=== PATIENT | female | born 1965 | race Two or more races ===

== ENCOUNTER 2020-04-01 08:14 | Emergency (ER) | payer OTHER, SELFPAY ==
[~2020-04-01] VITALS: Ht 170.2 cm; Wt 93.3 kg
[2020-04-01] MEDS ORDERED: DEXAMETHASONE 4 MG/ML, 1ML ONE (08:47)
[2020-04-01] MEDS ORDERED: DEXAMETHASONE 4 MG/ML, 1ML PO ONE (09:00)
[2020-04-01 09:05] LABS: BASOPHILS % (AUTO) 0 % (0-1); EOSINOPHILS % (AUTO) 0 % (1-7); LYMPHOCYTES % (AUTO) 15 % (22-44); MEAN CORPUSCULAR HEMOGLOBIN 29.3 pg (27.0-34.8); MEAN CORPUSCULAR HGB CONC 34.1 g/dL (32.4-35.8); MONOCYTES % (AUTO) 8 % (2-9); NEUTROPHILS % (AUTO) 76 % (42-75); PLATELET COUNT 172 x10^3/uL (130-400); RED BLOOD COUNT 5.03 x10^6/uL (3.82-5.3); RED CELL DISTRIBUTION WIDTH 14.3 % (9.6-15.2)
[2020-04-01 09:09] LABS: MD NO
[2020-04-01] MEDS ORDERED: DOXYCYCLINE 100MG TABLET PO ONE (09:30)
--- NOTE | 2020-04-01 09:30 | NUR ---
#[id number] assumed care of pt. pt here c/o GOMEZ and intermittent SOB. pt reports that she is COVID+ and that she has been having fevers as high as 103 at home. pt is currently afebrile and in no resp. distress on RA. pt calm and cooperative and Dr Craig has been to bedside for evaluation pt updated on POC. no family at bedside resting in position of comfort
[2020-04-01 09:31] LABS: ALANINE AMINOTRANSFERASE 23 U/L (12-78); BILIRUBIN,TOTAL 0.3 mg/dL (0.2-1.0); CALCIUM 8.6 mg/dL (8.5-10.1); CHLORIDE 105 mmol/L (98-107); CREATININE 0.73 mg/dL (0.55-1.02)
[2020-04-01 09:32] LABS: ALBUMIN 3.4 g/dL (3.4-5.0); ALKALINE PHOSPHATASE 148 U/L (45-117); ANION GAP 7 mmol/L (5-15); TOTAL PROTEIN 7.7 g/dL (6.4-8.2); TROPONIN I < 0.015 ng/mL (0.000-0.045)
[2020-04-01] MEDS ORDERED: DOXYCYCLINE 100MG TABLET ONE (10:39)
--- NOTE | 2020-04-01 11:30 | NUR ---
per report, Jose GUILLEN attempted to D/C pt but pt was 88% on RA. Jose notified Dr. Craig of pt SaO2 and per report pt is still OK to D/C
--- NOTE | 2020-04-01 12:00 | NUR ---
pt SaO2 is intermittently between 88 to 91%. pt is in no resp. distress. no cough, afebrile. pt denies CP and states that she stil wants to be D/C. Dr. Craig has been notified by this RN and per MD, pt is still OK for D/C to home
--- NOTE | 2020-04-01 12:18 | NUR ---
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
[2020-04-01 12:27] VITALS: BP 119/69
[2020-04-01] MEDS ORDERED: SERT100T32 PO (22:46)
[2020-04-01] MEDS ORDERED: BUPR100T8 PO (22:46)
[2020-04-01] MEDS ORDERED: BUSP15TA PO (22:46)
== END 2020-04-01 12:32 | disposition home or self-care (01) ==
LOC: ED 09:32
DX: J15.9 Unspecified bacterial pneumonia (principal); R94.31 Abnormal electrocardiogram [ECG] [EKG]
CPT/HCPCS: 36415; 71045; 80053; 84484; 85025; 93005; 99285; J1100

== ENCOUNTER 2020-04-01 21:22 | Emergency (ER) | payer SELFPAY ==
[~2020-04-01] VITALS: Ht 167.6 cm; Wt 92.0 kg
[2020-04-01] MEDS ORDERED: SERT100T32 PO (22:46)
[2020-04-01] MEDS ORDERED: BUPR100T8 PO (22:46)
[2020-04-01] MEDS ORDERED: BUSP15TA PO (22:46)
--- NOTE | 2020-04-01 22:47 | NUR ---
PT CAME INTO ED TODAY DUE TO COVID, PT REPORTS CP AND INCREASING SOB. PT GROSS NEURO INTACT, RESTING ON GURNEY, PULSES 2+, PLACED ON SPO2/BP/ECG MONITORING AT THIS TIME, PROVIDED WARM BLANKETS, NAD, CALL LIGHT ON LAP, SIDE RAILS UP, BED IN LOWEST, WCTM. WAITING FOR RCK. DENIES ADDITIONAL QUESTIONS OR NEEDS AT THIS TIME.
[2020-04-01 23:29] VITALS: BP 120/63
--- NOTE | 2020-04-01 23:32 | NUR ---
Patient/Caregiver given discharge instructions and they have confirmed that they understand the instructions. Patient ambulatory with steady gait. NAD, DENIES ADDITIONAL QUESTIONS OR NEEDS. NO PERSONAL BELONGINGS LEFT IN ROOM AT TIME OF DC.
== END 2020-04-02 00:15 | disposition home or self-care (01) ==
LOC: ED 22:07
DX: B34.9 Viral infection, unspecified (principal); R05 Cough; R06.02 Shortness of breath; R50.9 Fever, unspecified; I49.1 Atrial premature depolarization; M79.10 Myalgia, unspecified site
CPT/HCPCS: 71045; 93005; 99283

== ENCOUNTER 2020-12-10 19:14 | Emergency (ER) | payer SELFPAY ==
[~2020-12-10] VITALS: Ht 167.6 cm; Wt 91.4 kg
[~2020-12-10 19:14] MED LIST: BUPR100T8 PO; BUSP15TA PO; SERT100T32 PO
--- NOTE | 2020-12-10 19:32 | NUR ---
pt c/o of sore throat, occasional cough, and spitting up sputum for past week. pt states she believes it started from the smoke in the air. pt daughter speaking for pt. pt chinese wristband on. bed in low positon, rails engaged. call light on lap. breathing even and unlabored. nadn. velázquez
--- NOTE | 2020-12-10 19:34 | NUR ---
pt states cp is from coughing since last week
[2020-12-10] MEDS ORDERED: KETOROLAC 30 MG/1 ML IM ONE (20:00)
[2020-12-10] MEDS ORDERED: KETOROLAC 30 MG/1 ML ONE (20:00)
--- NOTE | 2020-12-10 20:12 | NUR ---
PT ON RESP ISO. STARTED WHEN PT ARRIVED.
[2020-12-10 20:18] LABS: BASOPHILS % (AUTO) 0 % (0-1); EOSINOPHILS % (AUTO) 3 % (1-7); LYMPHOCYTES % (AUTO) 41 % (22-44); MEAN CORPUSCULAR HEMOGLOBIN 29.5 pg (27.0-34.8); MEAN CORPUSCULAR HGB CONC 34.1 g/dL (32.4-35.8); MEAN PLATELET VOLUME 8.4 fL (7.4-10.4); MONOCYTES % (AUTO) 6 % (2-9); NEUTROPHILS % (AUTO) 50 % (42-75); PLATELET COUNT 206 x10^3/uL (130-400); RED BLOOD COUNT 4.71 x10^6/uL (3.82-5.3); RED CELL DISTRIBUTION WIDTH 14.4 % (9.6-15.2)
--- NOTE | 2020-12-10 20:19 | NUR ---
Patient is resting comfortably in bed. Bed in lowest, rails engaged, call light on lap. Vital Signs within normal limits. WCTM.
[2020-12-10 20:28] LABS: ALANINE AMINOTRANSFERASE 32 U/L (12-78); ALBUMIN 3.5 g/dL (3.4-5.0); ANION GAP 4 mmol/L (5-15); CALCIUM 8.4 mg/dL (8.5-10.1); CHLORIDE 109 mmol/L (98-107); CREATININE 0.79 mg/dL (0.55-1.02)
[2020-12-10 20:31] LABS: ALKALINE PHOSPHATASE 144 U/L (45-117); BILIRUBIN,TOTAL 0.3 mg/dL (0.2-1.0); TOTAL PROTEIN 7.5 g/dL (6.4-8.2)
[2020-12-10 21:05] VITALS: BP 123/72
--- NOTE | 2020-12-10 21:05 | NUR ---
Patient is resting comfortably in bed. Bed in lowest, rails engaged, call light on lap. Vital Signs within normal limits. WCTM.
--- NOTE | 2020-12-10 22:09 | NUR ---
Patient/Caregiver given discharge instructions and they have confirmed that they understand the instructions. Patient ambulatory with steady gait. NAD, all questions answered appropriately, denies additional needs at this time. No personal belongings left in room after discharge.
== END 2020-12-10 22:11 ==
LOC: ED 20:14
DX: R07.89 Other chest pain (principal); R05 Cough; B34.9 Viral infection, unspecified; R06.02 Shortness of breath; R51.9 Headache, unspecified; R94.31 Abnormal electrocardiogram [ECG] [EKG]
CPT/HCPCS: 36415; 71045; 80053; 85025; 93005; 96372; 99285; J1885